=== PATIENT | female | born 1960 | race African-American/Black ===

== ENCOUNTER 2017-06-28 15:36 | Emergency (ER) | payer OTHER ==
[~2017-06-28] VITALS: Ht 162.6 cm; Wt 94.4 kg
[~2017-06-28 15:36] MED LIST: ACCUPRIL PO; ASPIRIN E.C.81 M1 PO; ATORVASTATIN CA10 MG PO; BUPROPION XL150 MG PO; CLONIDINE HCL0.1 MG PO; COUMADIN,JANTO7.5 MG PO; COUMADIN,JANTOV10 MG PO; COUMADIN10 MG PO; CYCLOBENZAPRINE10 MG PO; Coumadin PO; DULERA 100 MCG/13 GM IH; Ecotrin PO; FEROSUL325 MG PO; FIORICET 50-301 EACH PO; HYDROCHLOROTH12.5 M3 PO; HYDROCHLOROTH12.5 MG PO; LAMICTAL25 MG PO; LEVAQUIN750 MG PO; LISINOPRIL-HCT1 EAC3 PO; LISINOPRIL20 MG PO; LISINOPRIL40 MG PO; LOW DOSE ASPIRI81 M1 PO; LOW DOSE ASPIRI81 M2 PO; MEDROL DOSEPAK4 MG PO; MOTRIN800 MG PO; MUCINEX DM ER1 EAC1 PO; NAPROSYN500 MG PO; NAPROXEN250 MG PO; NORVASC5 MG PO; Norvasc PO; PANTOPRAZOLE SO40 MG PO; PERCOCET 5/31 TABLET PO; PREDNISONE20 MG PO; PRINIVIL20 MG PO; QUINAPRIL HCL40 MG PO; RANITIDINE HCL150 MG PO; RANITIDINE HCL300 M1 PO; RISPERIDONE1 MG PO; ROBITUSSIN AC,T10 ML PO; SINGULAIR10 MG PO; TYLENOL REGULA325 MG PO; TYLENOL WITH C1 EACH PO; Tylenol Regular Stre PO; VISINE TEARS DR30 ML BOTH EYES; XARELTO20 MG PO; ZITHROMAX Z-PA250 MG PO
[2017-06-28 16:44] LABS: ADD MIUA? YES; BILIRUBIN NEGATIVE; BLOOD SMALL; COLOR YELLOW ((YELLOW)); GLUCOSE (STRIP) NEGATIVE; KETONES NEGATIVE; LEUKOCYTES NEGATIVE; NITRITE NEGATIVE; PROTEIN (STRIP) 30; SPECIFIC GRAVITY 1.017 (1.000-1.030)
[2017-06-28 16:52] LABS: BACTERIA RARE /HPF; EPITHELIAL CELLS RARE /HPF; HYALINE CASTS 0-5 /LPF; MUCUS TRACE /LPF; WHITE BLOOD CELLS 0-5 /HPF (0-5)
[2017-06-28] MEDS ORDERED: NORCO 10/3251 TABLET PO (17:18)
[2017-06-28] MEDS ORDERED: MOTRIN800 MG PO (17:18)
[2017-06-28] MEDS ORDERED: VALIUM5 MG PO (17:18)
[2017-06-28] MEDS ORDERED: VALSARTAN160 MG PO (17:41)
[2017-06-28 19:52] VITALS: BP 136/74
== END 2017-06-28 19:53 | disposition home or self-care (01) ==
LOC: EME 15:36
PROVIDERS: Physician Assistant
DX: M51.17 Intervertebral disc disorders with radiculopathy, lumbosacral region (principal); I10 Essential (primary) hypertension; R31.29 Other microscopic hematuria; K42.9 Umbilical hernia without obstruction or gangrene; D25.9 Leiomyoma of uterus, unspecified; F32.9 Major depressive disorder, single episode, unspecified; I25.2 Old myocardial infarction; Z86.711 Personal history of pulmonary embolism; Z87.19 Personal history of other diseases of the digestive system
CPT/HCPCS: 72114; 72170; 74176; 81003; 99281; 99284; J3010

== ENCOUNTER 2018-03-21 19:47 | Emergency (ER) | payer SELFPAY ==
[~2018-03-21] VITALS: Ht 162.6 cm; Wt 99.2 kg
[~2018-03-21 19:47] MED LIST changes: +NORCO 10/3251 TABLET PO; +VALIUM5 MG PO; +VALSARTAN160 MG PO
[2018-03-21 21:34] LABS: HEMATOCRIT 40.2 % (36.0-46.0); HEMOGLOBIN 13.6 G/DL (11.9-15.5); MCH 29.5 PG (29.0-34.0); MCHC 33.8 G/DL (30.0-36.0); MCV 87.2 FL (83-99); PLATELET COUNT 183 K/uL (156-360); RBC DIS.WIDTH-CV 12.3 % (11.8-14.6); RBC DIS.WIDTH-SD 39.6 % (39-53); RED BLOOD COUNT 4.61 M/uL (3.80-5.20); WHITE BLOOD COUNT 5.2 K/uL (4.1-10.2)
[2018-03-21 21:51] LABS: CHLORIDE 104 MEQ/L (99-109); POTASSIUM 3.6 MEQ/L (3.7-5.4); SODIUM 140 MEQ/L (136-147)
[2018-03-21 21:56] LABS: CREATININE 0.9 MG/DL (0.6-1.3); GFR ESTIMATE (CALCULATED) > 59 mL/min/; GLUCOSE 132 mg/dL (70-99); UREA NITROGEN (BUN) 16 mg/dL (9-23)
[2018-03-21 23:28] LABS: APPEARANCE CLEAR ((CLEAR)); BILIRUBIN NEGATIVE; BLOOD SMALL; COLOR YELLOW ((YELLOW)); GLUCOSE (STRIP) NEGATIVE; KETONES NEGATIVE; LEUKOCYTES NEGATIVE; NITRITE NEGATIVE; PROTEIN (STRIP) NEGATIVE; SPECIFIC GRAVITY 1.017 (1.000-1.030); UROBILINOGEN 0.2 MG/DL (0.2-1.0)
[2018-03-21 23:35] LABS: BACTERIA NONE SEEN /HPF; EPITHELIAL CELLS RARE /HPF; MUCUS TRACE /LPF; RED BLOOD CELLS 0-5 /HPF (0-5); WHITE BLOOD CELLS 0-5 /HPF (0-5)
[2018-03-22] MEDS ORDERED: ANTIVERT25 MG PO (00:31)
[2018-03-22] MEDS ORDERED: MUCINEX1200 MG PO (00:31)
[2018-03-22 00:44] VITALS: BP 160/102
== END 2018-03-22 00:54 | disposition home or self-care (01) ==
LOC: EME 19:47
PROVIDERS: Physician Assistant
DX: H65.02 Acute serous otitis media, left ear (principal); I10 Essential (primary) hypertension; F32.9 Major depressive disorder, single episode, unspecified; I25.2 Old myocardial infarction; Z87.19 Personal history of other diseases of the digestive system; Z85.9 Personal history of malignant neoplasm, unspecified; Z86.711 Personal history of pulmonary embolism; Z98.51 Tubal ligation status
CPT/HCPCS: 80048; 81003; 85027; 93005; 99281; 99284